=== PATIENT | male | born 1955 | race Two or more races ===

== ENCOUNTER 2024-04-17 10:20 | Day surgery (SDC) | payer MEDICARE, BC ==
[2024-04-12 12:09] LABS: Urine Bacteria None Seen /hpf (None Seen)
[2024-04-12 12:24] LABS: Basophils # (auto) 0.1 10 ^3/uL (0-0.2); Basophils % (auto) 0.8 % (0.0-2.0); Eosinophils # (auto) 0.2 10 ^3/uL (0-0.8); Eosinophils % (auto) 2.7 % (0.0-7.0); Hematocrit 41.4 % (41.0-53.0); Hemoglobin 13.8 g/dL (13.5-17.5); Lymphocytes # (auto) 1.7 10 ^3/uL (0.4-5.4); Lymphocytes % (auto) 20.3 % (10.0-50.0); Mean Corpuscular Hemoglobin 30.3 pg (28.0-32.0); Mean Corpuscular Hgb Conc. 33.4 g/dL (32.0-36.0); Mean Corpuscular Volume 90.6 fL (80.0-100.0); Monocytes # (auto) 0.8 10 ^3/uL (0-1.3); Monocytes % (auto) 9.7 % (0.0-12.0); Neutrophils # (auto) 5.4 10 ^3/uL (1.6-8.6); Neutrophils % (auto) 66.5 % (37.0-80.0); Nucleated Red Blood Cells % 0.1 %; Platelet Count (auto) 192 10^3/uL (140-450); Red Blood Cells 4.57 10^6/uL (4.5-5.90); Red Cell Distribution Width 14.1 % (11.8-14.3); White Blood Cell 8.2 10^3/uL (4.4-10.8)
[2024-04-12 12:27] LABS: Urine Blood Negative /uL (Negative); Urine Clarity Clear (Clear); Urine Color Colorless (Yellow); Urine Protein, UAD Negative (Negative); Urine Specific Gravity 1.007 (1.001-1.035); Urine Squamous Epithelial Cell None Seen /hpf (<5); Urine Urobilinogen Normal (Negative); Urine WBC < 1 /HPF (0-3); Urine pH 5.5 (5.0-9.0)
[2024-04-12 12:42] LABS: Alanine Aminotransferase 18 U/L (7-40); Albumin 4.4 g/dL (3.2-4.8); Alkaline Phosphatase 54 U/L (46-116); Anion Gap 9 (5-15); Aspartate Aminotransferase 14 U/L (13-40); BUN/Creatinine Ratio 18.9 (10.0-20.0); Blood Urea Nitrogen 20 mg/dL (9-23); Calcium 9.9 mg/dL (8.7-10.4); Carbon Dioxide 25 mmol/L (20-31); Chloride 102 mmol/L (98-107); Potassium 4.4 mmol/L (3.5-5.1)
[2024-04-12 12:43] LABS: Glucose 144 mg/dL (74-106); Sodium 136 mmol/L (136-145); Total Protein 7.2 g/dL (5.7-8.2)
[2024-04-12 12:44] LABS: Bilirubin, Total 1.5 mg/dL (0.2-1.0)
[2024-04-12 12:56] LABS: INR 1.08 (0.9-1.15); Partial Thromboplastin Time 31.3 SEC (24.5-34.5); Prothrombin Time 11.4 sec (9.3-11.8)
[~2024-04-17] VITALS: Ht 180.3 cm; Wt 136.1 kg
[~2024-04-17 10:20] MED LIST: ATOR10TA52 PO; GLIP5TAB21 PO; METF-372 PO
[2024-04-17] MEDS ORDERED: ceFAZolin 2 GM/D5W100ml 100 ML IV ONE (10:54)
[2024-04-17] MEDS ORDERED: MEPERIDINE HCL (25 MG/ML) 1ML VIAL ONE (11:47)
[2024-04-17] MEDS ORDERED: LIDOCAINE 1% INJ PF 5ML AMP ONE (11:47)
[2024-04-17] MEDS ORDERED: MIDAZOLAM HCL 2MG/2ML 2ml VIAL (1mg/ml) ONE (11:47)
[2024-04-17] MEDS ORDERED: PROPOFOL 10 MG/ML 20 ML IV ONE (11:47)
[2024-04-17] MEDS ORDERED: SODIUM CHLORIDE LOCK 10 ML ONE (11:47)
[2024-04-17] MEDS ORDERED: ONDANSETRON HCL 4 MG/2 ML VIAL ONE (11:47)
[2024-04-17] MEDS ORDERED: fentaNYL CITRATE 100 MCG/2 ML VL ONE (11:47)
[2024-04-17] MEDS ORDERED: KETAMINE 50mg/ML 1ml syringe ONE (11:47)
[2024-04-17] MEDS ORDERED: ROPIVACAINE 0.5% (5MG/ML) 20ML AMPULE IJ ONE (13:04)
[2024-04-17] MEDS ORDERED: ceFAZolin 1GM VL ONE (13:04)
[2024-04-17] MEDS ORDERED: MORPHINE SULFATE INJ 2 MG/ml SYRG IV PRN (13:45)
[2024-04-17] MEDS ORDERED: MORPHINE SULFATE 4 MG/ML SYR/VIAL IV PRN (13:45)
[2024-04-17] MEDS ORDERED: KETOROLAC TROMETH 30 MG/ML 1ML VIAL IV ONE (13:45)
[2024-04-17] MEDS ORDERED: METOCLOPRAMIDE HCL 5MG/ml INJ 2ml VIAL IV ONE (13:45)
[2024-04-17] MEDS ORDERED: ACCU-CHEK COMFORT CURVE STRIP VI ONE (13:45)
[2024-04-17] MEDS ORDERED: HYDROmorphone HCL 2 MG/ML VL/or syr IV PRN ×2 (13:45)
[2024-04-17 14:09] VITALS: PULSE 82; RESP 17; TEMP 98.5; O2SAT 98
--- NOTE | 2024-04-17 14:13 | DVHOP2 ---
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 Frederick MD Anesthesia: Mac Consent: The patient was informed of the risks and benefits of the procedure. These include but are not limited to complications of anesthesia, postoperative infection, incomplete relief of symptoms, recurrence of symptoms, damage to blood vessels, nerves and tendons, deep venous thrombosis, pulmonary embolism and possible need for repeat surgery in the future. Name of Procedure Performed Application of Dermagraft with preparation to the ulceration medial aspect left calcaneus Procedure Details Procedure Details: The patient was brought to the operating room placed on the operating table in the supine position. After MAC anesthesia was achieved three cultures were taken from the wound sent to pathology as a specimen. The left foot and leg was then prepped and draped in the proper aseptic manner. Attention was now directed to procedure 1. Procedure 1. Application of Dermagraft (graft jacket) medial heel ulceration left foot: Ulceration measured approximately 5 cm x 2 cm full-thickness skin loss ulceration extending all the way down to the deep base of the dermis and subcutaneous tissue. The ulceration appears to be irregular in shape. The ulceration has evidence of necrotic soft tissue in the bed of the wound and then deferment over the bone as well. No discharge, no foul odor, no ascending cellulitis noted. Utilizing a number 15. Blade, tissue Nipper, and curette excisional debridement was conducted all the way down to the deep base of the dermis subcutaneous tissue and bleeding. Saline lavaged with 1 g of Ancef was aspirated no debris was noted. Graft jacket was obtained and applied over the wound and anchored in place with small skin ava without incident. Adaptic buttress dressings 4x4s Kerlix and Elio bandage to yield a mildly compressive type bandage. There were no intraoperative complications the patient left the operating recovery room stable condition. Patient prophylaxed with 2 g of IV Ancef prior to surgery. Patient will be this past the cam walker and was given strict instructions to be 100% nonweightbearing to the heel. The patient may apply weight to the forefoot if necessary but never to the heel whatsoever. Patient has postop medications follow-up visit my office at home. Specimen: Necrotic soft tissue medial left heel Condition Good Disposition Home TUNDE WILKS DPM Apr 17, 2024 14:13
[2024-04-17 14:25] VITALS: O2SAT 94
[2024-04-17 14:55] VITALS: BP 135/69; PULSE 83; RESP 16
== END 2024-04-17 15:30 | disposition home or self-care (01) ==
LOC: SUR 10:20
PROVIDERS: ATTEND Podiatrist Foot & Ankle Surgery
DX: E11.52 Type 2 diabetes mellitus with diabetic peripheral angiopathy with gangrene (principal); I96 Gangrene, not elsewhere classified; E11.621 Type 2 diabetes mellitus with foot ulcer; L97.423 Non-pressure chronic ulcer of left heel and midfoot with necrosis of muscle; L97.422 Non-pressure chronic ulcer of left heel and midfoot with fat layer exposed; E78.00 Pure hypercholesterolemia, unspecified; Z79.4 Long term (current) use of insulin
CPT/HCPCS: 15275; 36415; 80053; 81001; 82962; 85025; 85610; 85730; 87070; 87075; 87077; 87186; 87205; 88305; 88312; C1887; J0690; J2175; J2250; J2405; J2704; J2795; J3010; Q4107